=== PATIENT | female | born 1940 | race Caucasian/White ===

== ENCOUNTER 2019-10-05 19:32 | Emergency (ER) | payer MEDICARE, OTHER ==
[2019-10-05] MEDS ORDERED: Lidocaine 1% 20 ML MDV INFILT ONE (19:33)
[2019-10-05] MEDS ORDERED: Diphtheria,Pertussis(Acell),Tetanus Vaccine 0.5 ML SDV IM ONE (20:11)
--- NOTE | 2019-10-05 20:15 | EDM.PDOC ---
ED HPI GENERAL MEDICAL PROBLEM - General Chief Complaint: Laceration Stated Complaint: fall Time Seen by Provider: 10/05/19 20:12 Source of Information: Reports: Patient, Family History Limitations: Reports: No Limitations - History of Present Illness INITIAL COMMENTS - FREE TEXT/NARRATIVE: Fell-sustained laceration to chin. No LOC ED ROS GENERAL - Review of Systems Review Of Systems: Comprehensive ROS is negative, except as noted in HPI. ED EXAM, SKIN/RASH Exam: See Below Text/Narrative:: 1 cm lac to the chin Exam Limited By: No Limitations General Appearance: Alert, WD/WN, No Apparent Distress ED SKIN PROCEDURES - Laceration/Wound Repair Jaw Appearance: Superficial, Subcutaneous, Linear Local Anesthesia - Lidocaine (Xylocaine): 1% Plain Local Anesthetic Volume: 2cc Skin Prep: Chlorhexidine (Hibiciens) Exploration/Debridement/Repair: In a Bloodless Field Closed with: Sutures Lac/Wound length In cm: 1 Suture Size: 5-0 Suture Type: Prolene Drain Placement: No Tetanus Status Addressed: Yes Complication Description: None Course - Vital Signs Last Recorded V/S: Last Vital Signs Temp 98.3 F 10/05/19 19:37 Pulse 101 H 10/05/19 19:37 Resp 18 10/05/19 19:37 BP 159/85 H 10/05/19 19:37 Pulse Ox 97 10/05/19 19:37 - Orders/Labs/Meds Orders: Active Orders 24 hr Category Date Time Status Vaccines to be Administered [RC] PER UNIT ROUTINE Care 10/05/19 20:11 Active Meds: Medications Discontinued Medications Generic Name Dose Route Start Last Admin Trade Name Freq PRN Reason Stop Dose Admin Diphtheria/Tetanus/Acell Pertussis 0.5 ml 10/05/19 20:11 Adacel IM 10/05/19 20:12 .ONCE ONE Departure - Departure Time of Disposition: 20:15 Disposition: Home, Self-Care 01 Condition: Good Clinical Impression: Broken skin - Discharge Information Referrals: PCP,Not In Area [Primary Care Provider] - Forms: ED Department Discharge Additional Instructions: Remove stitches in 5 days Sepsis Event Note - Evaluation Sepsis Screening Result: No Definite Risk - Focused Exam Vital Signs: Vital Signs Temp Pulse Resp BP Pulse Ox 10/05/19 19:37 98.3 F 101 H 18 159/85 H 97 Date Exam was Performed: 10/05/19 Time Exam was Performed: 20:35 - Problem List Review Problem List Initiated/Reviewed/Updated: Yes - My Orders Last 24 Hours: My Active Orders 10/05/19 20:11 Vaccines to be Administered [RC] PER UNIT ROUTINE - Assessment/Plan Last 24 Hours: My Active Orders 10/05/19 20:11 Vaccines to be Administered [RC] PER UNIT ROUTINE Plan: Laceration repair done with 5-0 Prolene. Tdap addressed. DC home.
== END 2019-10-05 20:43 | disposition home or self-care (01) ==
LOC: FB.ED 19:32
DX: S01.81XA Laceration without foreign body of other part of head, initial encounter (principal); Z23 Encounter for immunization; W19.XXXA Unspecified fall, initial encounter
CPT/HCPCS: 12011; 90471; 90715; 99282; J2001